=== PATIENT | female | born 1970 | race Caucasian/White ===

== ENCOUNTER 2020-03-27 08:14 | Emergency (ER) | payer MEDICAID, OTHER ==
[~2020-03-27] VITALS: Ht 165.1 cm; Wt 139.3 kg
[~2020-03-27 08:14] MED LIST: AMLO-489; FERR-20; GLIP5TAB12; PANT1INJ3
[2020-03-27] MEDS ORDERED: LOSARTAN POTASSIUM 25 MG TAB PO ONE (09:00)
[2020-03-27 10:20] VITALS: BP 179/85
== END 2020-03-27 10:23 | disposition home or self-care (01) ==
LOC: ER 08:14
DX: S86.912A Strain of unspecified muscle(s) and tendon(s) at lower leg level, left leg, initial encounter (principal); E11.9 Type 2 diabetes mellitus without complications; I10 Essential (primary) hypertension; X58.XXXA Exposure to other specified factors, initial encounter; Y93.89 Activity, other specified; Y92.89 Other specified places as the place of occurrence of the external cause; Y99.8 Other external cause status
CPT/HCPCS: 93971